=== PATIENT | female | born 1960 | race Caucasian/White ===

== ENCOUNTER 2017-07-07 16:37 | Emergency (ER) | payer BC ==
[~2017-07-07] VITALS: Ht 170.2 cm; Wt 90.5 kg
[2017-07-07] MEDS ORDERED: STOOL SOFTENER240 MG PO (19:01)
[2017-07-07] MEDS ORDERED: PERCOCET 5/31 TABLET PO (19:01)
[2017-07-07 20:26] VITALS: BP 133/71
== END 2017-07-07 20:28 | disposition home or self-care (01) ==
LOC: EME 16:37
PROC: 2W3DX1Z Immobilization of Left Lower Arm using Splint (ICD-10-PCS; principal; 2017-07-07)
DX: S52.532A Colles' fracture of left radius, initial encounter for closed fracture (principal); W01.10XA Fall on same level from slipping, tripping and stumbling with subsequent striking against unspecified object, initial encounter; Y93.01 Activity, walking, marching and hiking
CPT/HCPCS: 73100; 99281; 99284